=== PATIENT | female | born 1985 ===

== ENCOUNTER 2024-04-04 09:32 | Outpatient (AMB) | payer OTHER, SELFPAY ==
[2024-04-04 09:36] VITALS: BP 105/64; PULSE 64; RESP 18; TEMP 36.5; O2SAT 90; BMI 24.7
--- NOTE | 2024-04-04 09:36 | ACNOTE_ITS ---
Vital Signs 04/04/24 09:36 Height 1.68 m Height Method Stated Weight 69.513 kg Weight Measurement Method Standing Scale BMI 24.7 BP 105/64 Blood Pressure Source Automatic Cuff Blood Pressure Location Left Upper Arm Position Sitting Respiration 18 Pulse 64 Pulse Source Monitor Temp 97.7 F Temp Source Oral Pulse Oximetry (%) 90 L Oxygen Delivery Method Room Air Allergies/Meds Allergies & Medications Allergies amoxicillin Allergy (Verified 04/04/24 09:39) Rash Medication Reconciliation nitrofurantoin macrocrystal 100 mg capsule 100 mg PO BID 5 days #10 caps 04/04/24 [Rx] phenazopyridine 100 mg tablet (Pyridium) 100 mg PO Q8H 2 days #6 tabs 04/04/24 [Rx] MA Intake Visit Data Collection New Patient or Established: New Patient (never been to [facility]) Seen by Clinical Staff ONLY (RN/BHARATH): No Pain Present Currently: Yes Pain Location: Abdomen Pain scale:: 4 Pain Scale Used: Jacques-Sutton/Numerical Diversity Specialist Required: No PCP or OBGYN visit in last 3 months: No Hx Now: No Do You Feel Safe at Home: Yes Authorities Contacted: N/A Smoking Status Smoking Status: Never smoker Immunization / Flu Flu Vaccine in the Last 12 Months: No Flu Vaccine Exclusion Criteria: No Exclusion Criteria Past Medical History Social History SMOKING STATUS: Smoking status: Never smoker Patient Portal Questionaires Social History Tobacco History Smoking Status: Never smoker Domestic Abuse History Do You Feel Safe at Home: Yes Review of Systems Report any current symptoms Only answer those that you have currently: Past Medical History Past Medical History Have you ever been diagnosed with any of the following: History of Present Illness HPI Narrative 39 years old female without past medical history presented to clinic with cc of pain, burning sensation during urination and frequency. Symptoms started this morning , and were progressively getting worse. Patient was fasting for the last 3 days for faith purposes and had poor oral fluid intake which can be contributing factor for symptoms. Otherwise she denied any fever , chills, body ache, nausea, vomiting or any other symptoms. Patient is sexually not active, denies any resent intercourse. she denies frequent UTIs . Physical exam was positive for mild suprapubic tenderness.We will prescribe nitrofurantoin 100 mg BID for 5 days, along with pyridium every 8 h for 2 days to ease a pain and discomfort. We will do urinalysis, and will follow up with her in 2-4 weeks. All questions and concerns were addressed , she gave rachael understanding and was agree with a plan. Review of Systems Review of Systems Systems Reviewed: All systems reviewed, normal except as documented Objective/Exam Narrative Physical exam: GENERAL: no acute distress, AAO x3, well nourished. HEENT: Head AT/ NC. Mucous membranes moist. PERRL. NECK: Supple, no lymphadenopathy, no carotid bruits. CARDIOVASCULAR: RRR. Normal S1/S2, No m/r/g. No pitting edema of bilateral LEs. RESPIRATORY: CTAB. No wheezing, rhonchi, crackles. GASTROINTESTINAL: Abdomen soft, mild suprapubic tenderness, no palpable masses. Bowel sounds present in all 4 quadrants. MUSCULOSKELETAL:? No cyanosis or edema, no visible joint swelling. NEUROLOGICAL: CN II-XII grossly intact. No focal deficits. Sensation intact, symmetric. PSYCHIATRIC: Awake and alert, not agitated, normal mood and affect. INTEGUMENTARY: No obvious rashes, no jaundice, normal turgor. Assessment & Plan Diagnosis / Problem List (1) UTI (urinary tract infection): Status: Acute Qualifiers: Urinary tract infection type: acute cystitis Hematuria presence: without hematuria Qualified Code(s): N30.00 - Acute cystitis without hematuria Assessment & Plan: cc are burning sensation, pain and discomfort during urination Plan take nitrofurantoin 100 mg BID for 5 days take pyridum every 8 hours for 2 days follow up with us in 2-4 weeks urinalisis Orders: Orders Urinalysis 2 Weeks Office Procedures [facility] Level of Care Nursing/Assessment Patient Status: Initial/New Patient Nursing Assessment/Reassessment: Medication Reconciliation, Update PMH in EMR and Vital Signs Coordination of Care: Complex Care and Chronic Disease 1-5, Consent,records obtained, informed consent, Education Simp Pt/Fam, Lab and Imaging orders and Staff clarify orders New Patient Charge New Patient Point Assignment: [id number] New Patient Point Charge: INTERNATIONAL COORDINATOR Level 3 ([id number])
== END 2024-04-04 10:11 | disposition home or self-care (01) ==
LOC: HODAHC 09:32
PROVIDERS: Supervising Provider Internal Medicine; Visit Provider Student in an Organized Health Care Education/Training Program
DX: N39.0 Urinary tract infection, site not specified (principal)
CPT/HCPCS: 99203; G0463

== ENCOUNTER → 2024-05-16 | Outpatient (CLI) | payer OTHER, SELFPAY ==
[2024-05-16 15:42] LABS: Collection Type, Urine Clean Catch
[2024-05-16 17:03] LABS: Bacteria,Urine Rare; Bilirubin,Urine Negative (Negative); Blood,Urine 2+ (Negative); Clarity,Urine Turbid (Clear/Hazy); Color,Urine Yellow (Lt Yel-Yel); Glucose, Urine Negative (Negative); Ketones,Urine Negative (Negative); Leukocyte Esterase,Urine Positive (Negative); Nitrite,Urine Positive (Negative); PH,Urine 7.5 (5.0-7.0); Protein,Urine 2+ (Neg - Trace); RBC,Urine 178 /hpf (0-3); Specific Gravity,Urine 1.025 (1.001-1.035); Squamous Epithelial Cell,Urine 3 /hpf (0-5); Urobilinogen,Urine Negative mg/dL (0.0-1.0); WBC,Urine 258 /hpf (0-5)
== END | disposition home or self-care (01) ==
LOC: SLDO 15:34
PROVIDERS: PCP Family Medicine; Referring Provider Family Medicine; Visit Provider Family Medicine
DX: N30.00 Acute cystitis without hematuria (principal)
CPT/HCPCS: 81001; 87077; 87086; 87186

== ENCOUNTER → 2024-10-03 | Outpatient (CLI) | payer OTHER, SELFPAY ==
--- NOTE | 2024-10-03 11:15 | XR_ITS ---
Examination: Transvaginal ultrasound of the pelvis, complete Technique: Transvaginal sonographic images pelvis performed using blanton scale imaging Exam date and time: October 03, 2024 1234 hours INDICATIONS: Pelvic pain beginning 2 weeks ago FINDINGS: Uterus 8.2 cm Intrauterine device satisfactory position No uterine mass Endometrial stripe 0.7 cm Right ovary 3.5 cm arterial flow cyst with internal echoes 19 x 17 mm Left ovary 2.0 cm arterial flow Mild fluid in the cul-de-sac IMPRESSION: Intrauterine device satisfactory position, no uterine mass Small right ovarian hemorrhagic cyst 17 x 14 x 19 mm.
--- NOTE | 2024-10-03 11:45 | XR_ITS ---
Examination: Retroperitoneal ultrasound, complete Technique: Multiple high resolution grayscale images of the retroperitoneum obtained, including kidneys and bladder. Exam date and time:October 03, 2024 0019 hours INDICATIONS: Abnormal renal function tests on laboratory examination last week FINDINGS: Right kidney 11.2 cm cortex 1.2 cm Left kidney 10.1 cm renal cortex 1.2 cm Mild renal parenchymal scar formation, no hydronephrosis No bladder mass or bladder calculi Bladder prevoid by 541 cc Mild urinary bladder wall thickening IMPRESSION: Bilateral renal cortical thinning Mild bilateral renal parenchymal scar formation Mild cystitis pattern
== END | disposition home or self-care (01) ==
PROVIDERS: PCP Family Medicine; Referring Provider Family Medicine; Visit Provider Family Medicine
DX: N28.89 Other specified disorders of kidney and ureter (principal); N83.201 Unspecified ovarian cyst, right side
CPT/HCPCS: 76770; 76830

== ENCOUNTER → 2025-02-20 | Outpatient (CLI) | payer OTHER, SELFPAY ==
[2025-02-20 10:52] LABS: Collection Type, Urine Clean Catch; Squamous Epithelial Cell,Urine 0 /hpf (0-5)
[2025-02-20 11:22] LABS: Basophils # (Auto) 0.0 Thou/mm3 (0.0-0.2); Basophils % (Auto) 1 % (0-2.5); Eosinophils # (Auto) 0.1 Thou/mm3 (0.0-0.5); Eosinophils % (Auto) 1 % (0-10); Hematocrit 38.6 % (36.0-46.0); Hemoglobin 12.8 g/dL (12.0-16.0); Immature Granulocytes Auto 0.01 Thou/mm3 (0.00-0.00); Lymphocytes # (Auto) 1.6 Thou/mm3 (1.0-4.8); Lymphocytes % (Auto) 33 % (10-50); Mean Corpuscular HGB Conc 33.2 g/dl (31.0-37.0); Mean Corpuscular Hemoglobin 31.5 pg (25.0-35.0); Mean Corpuscular Volume 95 fL (80-100); Monocytes # (Auto) 0.4 Thou/mm3 (0.0-0.8); Monocytes % (Auto) 8 % (0-12); Neutrophils # (Auto) 2.8 Thou/mm3 (1.8-7.7); Neutrophils % (Auto) 57 % (37-80); Nucleated Red Blood Cell # 0.00 Thou/mm3 (0.00-0.00); Nucleated Red Blood Cell % 0 /100 WBC (0); Platelet Count 292 Thou/mm3 (140-440); RDW Standard Deviation 44.9 fL (36.4-46.3); Red Blood Count 4.06 Miln/mm3 (4.00-5.20); White Blood Count 5.0 Thou/mm3 (3.6-11.0)
[2025-02-20 11:26] LABS: Bilirubin,Urine Negative (Negative); Blood,Urine Negative (Negative); Clarity,Urine Clear (Clear/Hazy); Color,Urine Lt-Yellow (Lt Yel-Yel); Glucose, Urine Negative (Negative); Ketones,Urine 1+ (Negative); Leukocyte Esterase,Urine Negative (Negative); Nitrite,Urine Negative (Negative); PH,Urine 7.0 (5.0-7.0); Protein,Urine Negative (Neg - Trace); RBC,Urine 3 /hpf (0-3); Specific Gravity,Urine 1.022 (1.001-1.035); Urobilinogen,Urine Negative mg/dL (0.0-1.0); WBC,Urine 1 /hpf (0-5)
[2025-02-20 11:32] LABS: Alanine Aminotransferase 16 U/L (10-49); Albumin, Serum 4.7 gm/dL (3.5-5.0); Albumin/Globulin Ratio 2.0 (1.2-2.2); Alkaline Phosphatase 42 U/L (46-116); Anion Gap 9 (7-16); Aspartate Amino Transferase 30 U/L (0-34); BUN/Creatinine Ratio 15 Ratio (12-20); Bilirubin,Total 0.6 mg/dL (0.3-1.2); Blood Urea Nitrogen 18 mg/dL (9-23); Calcium 10.3 mg/dL (8.3-10.6); Calcium (Corrected) 10.3 mg/dL (8.5-10.1); Carbon Dioxide 28.4 mMol/L (20.0-31.0); Chloride 105 mMol/L (98-107); Creatinine (Component) 1.2 mg/dL (0.6-1.3); Globulin 2.3 gm/dL (2.3-3.5); Glucose 89 mg/dL (74-106); Osmolality,Calculated 284 (275-295); Potassium 4.6 mMol/L (3.4-5.1); Sodium 142 mMol/L (136-145); Total Protein 7.0 gm/dL (5.7-8.2); eGFR 60 See Note
== END | disposition home or self-care (01) ==
LOC: COPL 10:07
PROVIDERS: PCP Family Medicine; Referring Provider Family Medicine; Visit Provider Family Medicine
DX: N30.00 Acute cystitis without hematuria (principal)
CPT/HCPCS: 36415; 80053; 81001; 85025; 87086